=== PATIENT | male | born 1950 | race Caucasian/White ===

== ENCOUNTER → 2020-07-02 | Day surgery (SDC) | payer MEDICARE, OTHER ==
[~2020-07-02] MED LIST: ACET15SO6 OT; ANAGRELIDE PO; ASPI81TA50 PO; BUPIVACAINE MPF 0.25% 10 ML VIAL. ONE; CLON0.5T4 PO; DIPH25TA26 PO; IOHEXOL 300 MG/ML 50 ML VIAL. ONE; LIDOCAINE 1% PF 30 ML VIAL. ONE; LISINOPRIL-HCTZ PO; MIRT30TA3 PO; OMEP20CA16 PO; SIMV10TA15 PO; ZOLP10TA4 PO; aggrenox; methylPREDNISolone ACETATE 40 MG/ML VIAL. ONE
[2020-07-02 10:46] VITALS: BP 116/77
== END | disposition home or self-care (01) ==
LOC: SURG 09:27
PROVIDERS: ATTEND Anesthesiology
DX: M25.511 Pain in right shoulder (principal); M54.2 Cervicalgia; M79.18 Myalgia, other site; M54.12 Radiculopathy, cervical region; M25.561 Pain in right knee; I10 Essential (primary) hypertension; E78.5 Hyperlipidemia, unspecified; M19.90 Unspecified osteoarthritis, unspecified site; F32.9 Major depressive disorder, single episode, unspecified; F43.12 Post-traumatic stress disorder, chronic; E78.00 Pure hypercholesterolemia, unspecified; G62.9 Polyneuropathy, unspecified; K21.9 Gastro-esophageal reflux disease without esophagitis; Z88.8 Allergy status to other drugs, medicaments and biological substances; Z88.2 Allergy status to sulfonamides; Z98.890 Other specified postprocedural states; Z79.899 Other long term (current) drug therapy; Z79.82 Long term (current) use of aspirin; Z98.41 Cataract extraction status, right eye; Z98.42 Cataract extraction status, left eye; Z83.3 Family history of diabetes mellitus; Z87.891 Personal history of nicotine dependence; Z82.49 Family history of ischemic heart disease and other diseases of the circulatory system
CPT/HCPCS: 20610; 77002; J1030; J3490; Q9967

== ENCOUNTER → 2020-07-30 | Day surgery (SDC) | payer OTHER ==
[~2020-07-30] MED LIST changes: -BUPIVACAINE MPF 0.25% 10 ML VIAL. ONE; -IOHEXOL 300 MG/ML 50 ML VIAL. ONE; -LIDOCAINE 1% PF 30 ML VIAL. ONE; -methylPREDNISolone ACETATE 40 MG/ML VIAL. ONE
[2020-07-30 10:18] VITALS: BP 155/84
== END | disposition home or self-care (01) ==
LOC: SURG 09:52
PROVIDERS: ATTEND Anesthesiology
DX: M25.512 Pain in left shoulder (principal); M54.2 Cervicalgia; M79.18 Myalgia, other site; M25.561 Pain in right knee; M54.12 Radiculopathy, cervical region; F32.9 Major depressive disorder, single episode, unspecified; E78.00 Pure hypercholesterolemia, unspecified; G62.9 Polyneuropathy, unspecified; K21.9 Gastro-esophageal reflux disease without esophagitis; Z79.899 Other long term (current) drug therapy; Z79.82 Long term (current) use of aspirin; Z88.2 Allergy status to sulfonamides; Z88.8 Allergy status to other drugs, medicaments and biological substances; Z98.41 Cataract extraction status, right eye; Z98.42 Cataract extraction status, left eye; Z83.3 Family history of diabetes mellitus; Z87.891 Personal history of nicotine dependence; Z82.49 Family history of ischemic heart disease and other diseases of the circulatory system; Z86.73 Personal history of transient ischemic attack (TIA), and cerebral infarction without residual deficits
CPT/HCPCS: 99213; G0463